=== PATIENT | male | born 1985 ===

== ENCOUNTER 2019-08-12 00:07 | Emergency (ER) | payer MEDICARE, OTHER ==
[2019-08-12 00:15] VITALS: BP 117/82; PULSE 83; RESP 20; TEMP 97.4
[2019-08-12 01:17] LABS: Amphetamine Screen,Urine Not Detected (NotDetected); Barbiturate Screen,Urine Not Detected (NotDetected); Benzodiazepines Screen,Urine Not Detected (NotDetected); Cocaine Screen,Urine Detected (NotDetected); Methadone Screen, Urine Not Detected (NotDetected); Opiate Screen,Urine Not Detected (NotDetected); Oxycodone Screen, Urine Not Detected (NotDetected); Phencyclidine Screen,Urine Not Detected (NotDetected); Tricyclic Antidepressant,Urine Not Detected (NotDetected); Urn Cannabinoid Scrn Not Detected (NotDetected)
--- NOTE | 2019-08-12 02:57 | ED ---
Psych HPI - General Chief Complaint: Psychiatric Symptoms Stated Complaint: Mental Health Time Seen by Provider: 08/12/19 00:41 Source: patient, family Mode of arrival: ambulatory - History of Present Illness Initial Comments: Sean is a 33-year-old gentleman who presents to the emergency department today stating that he missed his monthly Abilify injection and feels like she noted that. Patient states he is feeling depressed but denies any suicidal thoughts or ideations. - Related Data Home Medications Medication Instructions Recorded Confirmed ARIPiprazole IM SYRINGE [Abilify 400 mg IM QMONTH 08/12/19 08/12/19 Maintena Syringe] Allergies Allergy/AdvReac Type Severity Reaction Status Date / Time No Known Allergies Allergy Verified 08/12/19 00:15 Review of Systems ROS Statement: Those systems with pertinent positive or pertinent negative responses have been documented in the HPI. ROS Other: All systems not noted in ROS Statement are negative. Past Medical History Past Medical History: No Reported History History of Any Multi-Drug Resistant Organisms: None Reported Past Surgical History: No Surgical Hx Reported Past Psychological History: Depression, Schizoaffective Disorder Smoking Status: Current every day smoker Past Alcohol Use History: None Reported Past Drug Use History: None Reported General Exam - General Exam Comments Initial Comments: Physical Exam GENERAL: Patient is well-developed and well-nourished. Patient is nontoxic and well-hydrated and is in no distress. HENT: Normocephalic, Atraumatic. EYES: PERRL, EOMI PULMONARY: Unlabored respirations. No audible rales rhonchi or wheezing was noted. CARDIOVASCULAR: There is a regular rate and rhythm without any murmurs gallops or rubs. ABDOMEN: Soft and nontender with normal bowel sounds. SKIN: Skin is clear with no lesions or rashes and otherwise unremarkable. : Deferred NEUROLOGIC: Patient is alert and oriented x3. Moving all extremities spontaneously MUSCULOSKELETAL: Normal extremities with adequate strength and full range of motion. No lower extremity swelling or edema. No calf tenderness. PSYCHIATRIC: Normal psychiatric evaluation. Limitations: no limitations Course Vital Signs 08/12/19 00:10 Temperature 97.4 F L Pulse Rate 83 Respiratory 20 Rate Blood Pressure 117/82 O2 Sat by Pulse 98 Oximetry Medical Decision Making - Medical Decision Making Patient was seen and evaluated history was obtained from patient This patient has an extensive psychiatric history, he is presenting today complaining that he missed his last injection. Denies suicidal or homicidal ideation Denies hallucinations Does not appear to be manic or psychotic Patient was evaluated by EPS nurse, at this time there is no indication for petition that she would like the patient to remain here to be evaluated by [facility] to discuss follow-up became agitated that he was here for 4 hours did not get his injections. Patient is not agreeable to staying. At this time the patient is not petitioned the we did encourage him to stay the patient refused further evaluation including discharge vital signs and walked out of the emergency department. - Lab Data Lab Results 08/12/19 Range/Units 00:50 Urine Opiates Screen Not Detected (NotDetected) Ur Oxycodone Screen Not Detected (NotDetected) Urine Methadone Screen Not Detected (NotDetected) Ur Propoxyphene Screen Not Detected (NotDetected) Ur Barbiturates Screen Not Detected (NotDetected) U Tricyclic Antidepress Not Detected (NotDetected) Ur Phencyclidine Scrn Not Detected (NotDetected) Ur Amphetamines Screen Not Detected (NotDetected) U Methamphetamines Scrn Not Detected (NotDetected) U Benzodiazepines Scrn Not Detected (NotDetected) Urine Cocaine Screen Detected H (NotDetected) U Marijuana (THC) Screen Not Detected (NotDetected) Disposition Clinical Impression: Noncompliance with medication regimen Disposition: Left Against Medical Advice Condition: Stable Is patient prescribed a controlled substance at d/c from ED?: No Referrals: None,Stated [Primary Care Provider] - 1-2 days
== END 2019-08-12 04:55 | disposition left against medical advice (07) ==
LOC: EC 00:07
DX: Z91.14 Patient's other noncompliance with medication regimen (principal); R45.1 Restlessness and agitation; F32.9 Major depressive disorder, single episode, unspecified; F25.0 Schizoaffective disorder, bipolar type; F17.200 Nicotine dependence, unspecified, uncomplicated; Z79.899 Other long term (current) drug therapy; Z53.20 Procedure and treatment not carried out because of patient's decision for unspecified reasons
CPT/HCPCS: 80306; 82075; 99284

== ENCOUNTER 2019-08-14 17:01 | Emergency (ER) | payer MEDICARE, OTHER ==
[2019-08-14 17:17] VITALS: BP 116/79; PULSE 89; RESP 18; TEMP 98.4
[2019-08-14 18:19] LABS: Amphetamine Screen,Urine Detected (NotDetected); Barbiturate Screen,Urine Not Detected (NotDetected); Benzodiazepines Screen,Urine Not Detected (NotDetected); Cocaine Screen,Urine Detected (NotDetected); Methadone Screen, Urine Not Detected (NotDetected); Opiate Screen,Urine Not Detected (NotDetected); Oxycodone Screen, Urine Not Detected (NotDetected); Phencyclidine Screen,Urine Not Detected (NotDetected); Tricyclic Antidepressant,Urine Not Detected (NotDetected); Urn Cannabinoid Scrn Not Detected (NotDetected)
--- NOTE | 2019-08-14 18:27 | ED ---
General Adult HPI - General Chief complaint: Psychiatric Symptoms Stated complaint: Mental health Time Seen by Provider: 08/14/19 18:03 Source: patient Mode of arrival: ambulatory Limitations: no limitations - History of Present Illness Initial comments: Patient is a 33-year-old male presenting to emergency Department with a chief complaint of not able to take Abilify. Patient reports he receives Abilify injections every 4 weeks as [facility]. Patient reports he was not able to go to [facility] for the past 2 months to obtain the injections. Patient reports he has developed increased anxiety. Patient denies any suicidal thoughts or ideations. Patient reports is a recently he has "not been eating or". Patient denies any abdominal pain nausea vomiting. Patient denies any headaches chest pain and chest tightness or shortness of breath.Patient is requesting to be admitted for further psychiatric evaluation. Patient has no further complaints. - Related Data Home Medications Medication Instructions Recorded Confirmed ARIPiprazole IM SYRINGE [Abilify 400 mg IM QMONTH 08/12/19 08/12/19 Maintena Syringe] Allergies Allergy/AdvReac Type Severity Reaction Status Date / Time No Known Allergies Allergy Verified 08/14/19 17:28 Review of Systems ROS Statement: Those systems with pertinent positive or pertinent negative responses have been documented in the HPI. ROS Other: All systems not noted in ROS Statement are negative. Past Medical History Past Medical History: No Reported History History of Any Multi-Drug Resistant Organisms: None Reported Past Surgical History: No Surgical Hx Reported Past Psychological History: Depression, Schizoaffective Disorder Smoking Status: Current every day smoker Past Alcohol Use History: None Reported Past Drug Use History: Cocaine General Exam Limitations: no limitations General appearance: alert, in no apparent distress Head exam: Present: atraumatic, normocephalic, normal inspection Eye exam: Present: normal appearance, PERRL, EOMI Pupils: Present: normal accommodation ENT exam: Present: normal exam, normal oropharynx, mucous membranes moist, TM's normal bilaterally, normal external ear exam Neck exam: Present: normal inspection, full ROM Respiratory exam: Present: normal lung sounds bilaterally Cardiovascular Exam: Present: regular rate, normal rhythm, normal heart sounds GI/Abdominal exam: Present: soft. Absent: distended, tenderness, guarding Extremities exam: Present: normal inspection, full ROM Back exam: Present: normal inspection, full ROM Neurological exam: Present: alert, oriented X3 Psychiatric exam: Present: normal affect, normal mood, anxious (Mild anxiety). Absent: depressed, agitated Skin exam: Present: warm, intact, normal color Course Vital Signs 08/14/19 17:13 Temperature 98.4 F Pulse Rate 89 Respiratory 18 Rate Blood Pressure 116/79 O2 Sat by Pulse 98 Oximetry Medical Decision Making - Medical Decision Making Patient is a 33-year-old male presenting to emergency Department with a chief complaint of not able to take Abilify. Patient reports that he has not been able to take his Abilify for the past 2 months. Patient does take Abilify injections once a month. Patient is requesting to be admitted because he needs a place to stay. Patient doesn't have any suicidal thoughts or ideations. Patient was evaluated by EPS to suggest patient be discharged because patient does not fit the criteria for admission. Patient does have contact with [facility] but does not want to use their care. Strict return parameters were thoroughly discussed with patient was understanding and agreeable. Case discussed with physician. - Lab Data Lab Results 08/14/19 Range/Units 17:40 Urine Opiates Screen Not Detected (NotDetected) Ur Oxycodone Screen Not Detected (NotDetected) Urine Methadone Screen Not Detected (NotDetected) Ur Propoxyphene Screen Not Detected (NotDetected) Ur Barbiturates Screen Not Detected (NotDetected) U Tricyclic Antidepress Not Detected (NotDetected) Ur Phencyclidine Scrn Not Detected (NotDetected) Ur Amphetamines Screen Detected H (NotDetected) U Methamphetamines Scrn Not Detected (NotDetected) U Benzodiazepines Scrn Not Detected (NotDetected) Urine Cocaine Screen Detected H (NotDetected) U Marijuana (THC) Screen Not Detected (NotDetected) Disposition Clinical Impression: Noncompliance with medication regimen Disposition: HOME SELF-CARE Condition: Stable Instructions (If sedation given, give patient instructions): Aripiprazole (By injection) Additional Instructions: Please take prescribed medication please follow up with [facility]. Please return to emergency department is symptoms worsen. Is patient prescribed a controlled substance at d/c from ED?: No Referrals: None,Stated [Primary Care Provider] - 1-2 days Time of Disposition: 19:17
== END 2019-08-14 19:40 | disposition home or self-care (01) ==
LOC: EC 17:01
DX: Z91.14 Patient's other noncompliance with medication regimen (principal); F41.9 Anxiety disorder, unspecified; F17.200 Nicotine dependence, unspecified, uncomplicated; F20.9 Schizophrenia, unspecified; F32.9 Major depressive disorder, single episode, unspecified; Z79.899 Other long term (current) drug therapy
CPT/HCPCS: 80306; 82075; 99284